=== PATIENT | male | born 1985 | race Caucasian/White ===

== ENCOUNTER 2020-04-17 21:06 | Inpatient (IN) | payer OTHER ==
[~2020-04-17] VITALS: Ht 177.8 cm; Wt 143.8 kg
[2020-04-17] MEDS ORDERED: ALBUTEROL (0.083%) 2.5MG/3ML NEB HHN STA (21:29)
[2020-04-17] MEDS ORDERED: IPRATROPIUM BROMIDE (0.02%) 0.5MG/2.5ML NEB HHN STA (21:29)
[2020-04-17] MEDS ORDERED: ACETAMINOPHEN 325MG TABLET PO STA (21:29)
[2020-04-17] MEDS: PIPERACILLIN/TAZ 3.375G PREMIX 50 ML IV ONE ×2 (21:55→22:15)
[2020-04-17 23:05] LABS: BASOPHILS % 0.2 % (0.0-2.0); HEMATOCRIT. 43.5 % (42.0-52.0); HEMOGLOBIN. 15.1 g/dL (14.0-18.0); LYMPHOCYTES % 11.9 % (20.0-50.0); MEAN CORPUSCULAR HEMOGLOBIN 30.3 pg (28.0-32.0); MEAN CORPUSCULAR VOLUME 87.7 fL (80.0-94.0); MONOCYTES % 4.6 % (2.0-8.0); NEUTROPHILS % 83.3 % (40.0-76.0); PLATELET 169 x1000/uL (130-400); RED BLOOD CELL COUNT 4.96 mill/uL (4.7-6.1); RED CELL DISTRIBUTION WIDTH 13.4 % (11.6-14.6)
[2020-04-17 23:16] LABS: CHLORIDE 104 mEq/L (98-107)
[2020-04-17 23:19] LABS: D-DIMER 0.62 mg/L FEU (<0.50); INR 1.1; PROTHROMBIN TIME 11.3 sec (9.6-11.0)
[2020-04-17 23:32] LABS: CLARITY URINE CLEAR (CLEAR); COLOR URINE YELLOW (YELLOW); KETONES URINE NEGATIVE (NEGATIVE); LEUKOCYTE ESTERASE URINE NEGATIVE (NEGATIVE); NITRITE URINE NEGATIVE (NEGATIVE); OCCULT BLOOD URINE NEGATIVE (NEGATIVE); PROTEIN URINE 1+ (NEGATIVE); SPECIFIC GRAVITY URINE 1.021 (1.005-1.030); UROBILINOGEN URINE 0.2 E.U./dL (0.2-1.0)
[2020-04-18] MEDS ORDERED: ONDANSETRON HCL 4MG/2ML INJ IV PRN (03:15)
[2020-04-18] MEDS ORDERED: ACETAMINOPHEN 325MG TABLET PO PRN (03:15)
[2020-04-18] MEDS ORDERED: DEXT 5%/0.45% NACL 1000ML 1,000 ML IV SCH (04:00)
[2020-04-18] MEDS ORDERED: AZITHROMYCIN 500 MG in DEXT 5% WATER 250 ML IV SCH (04:00)
[2020-04-18] MEDS: PIPERACILLIN/TAZ 3.375G PREMIX 50 ML IV SCH ×2 (08:08→15:36)
[2020-04-18] MEDS ORDERED: ENOXAPARIN 30MG/0.3ML SYR SUBCUT SCH (09:00)
[2020-04-18 09:25] LABS: BG CARBOXYHEMOGLOBIN 0.3 % (0.5-1.5); BG DEOXYHEMOGLOBIN 0.9 % (0.0-5.0); BG FRACTION INSPIRED OXYGEN 100; BG HCO3 ACT 22.5 mmol/L (22.0-26.0); BG METHEMOGLOBIN 0.3 % (0.0-1.5); BG OXYGEN SATURATION 99.1 % (92.0-98.5); BG OXYHEMOGLOBIN 98.5 % (94.0-97.0); BG PCO2 30.9 mmHg (35.0-45.0); BG PO2 208.4 mmHg (75.0-100.0); BG SAMPLE SITE RIGHT RADIAL; BG TOTAL HEMOGLOBIN 14.9 g/dL (12.0-18.0); BG VENT MODE MASK - NRB
[2020-04-18 15:58] VITALS: BP_SYST 118; BP_SYST 121; BP_DIAS 73
[2020-04-18] MEDS ORDERED: CEFTRIAXONE 1 G PREMIX 50 ML IV SCH (16:00)
[2020-04-18] MEDS: DEXAMETHASONE 4MG TABLET PO SCH (16:59)
[2020-04-18] MEDS: CEFTRIAXONE 1,000 MG in DEXTROSE 5% WATER 50 ML IV SCH (17:00)
[2020-04-18] MEDS: ALBUTEROL 6.7GM HFA INHALER ORI SCH (18:00)
[2020-04-18 20:31] VITALS: BP 119/83
[2020-04-18] MEDS: ENOXAPARIN 120MG/0.8ML SYR SUBCUT SCH (22:55)
[2020-04-18 23:23] VITALS: BP 123/91
[2020-04-19] MEDS: ALBUTEROL 6.7GM HFA INHALER ORI SCH ×5 (06:36→23:03)
[2020-04-19 06:56] LABS: BASOPHILS % 0.1 % (0.0-2.0); HEMATOCRIT. 42.4 % (42.0-52.0); HEMOGLOBIN. 14.6 g/dL (14.0-18.0); LYMPHOCYTES % 10.2 % (20.0-50.0); MEAN CORPUSCULAR HEMOGLOBIN 30.4 pg (28.0-32.0); MEAN CORPUSCULAR VOLUME 88.5 fL (80.0-94.0); MEAN PLATELET VOLUME 9.4 fl (7.4-10.4); MONOCYTES % 6.6 % (2.0-8.0); NEUTROPHILS % 83.1 % (40.0-76.0); PLATELET 192 x1000/uL (130-400); RED BLOOD CELL COUNT 4.79 mill/uL (4.7-6.1); RED CELL DISTRIBUTION WIDTH 13.5 % (11.6-14.6)
[2020-04-19 07:06] LABS: CHLORIDE 108 mEq/L (98-107)
[2020-04-19 08:00] VITALS: BP 108/62
[2020-04-19] MEDS: AZITHROMYCIN 500 MG in DEXT 5% WATER 250 ML IV SCH (08:24)
[2020-04-19] MEDS: ENOXAPARIN 120MG/0.8ML SYR SUBCUT SCH (08:25)
[2020-04-19] MEDS: DEXAMETHASONE 4MG TABLET PO SCH (08:25)
[2020-04-19 09:40] LABS: BG BASE EXCESS -1.3 mmol/L (-2.0-2.0); BG CARBOXYHEMOGLOBIN 0.3 % (0.5-1.5); BG DEOXYHEMOGLOBIN 5.6 % (0.0-5.0); BG FRACTION INSPIRED OXYGEN 44; BG HCO3 ACT 22.2 mmol/L (22.0-26.0); BG METHEMOGLOBIN 0.3 % (0.0-1.5); BG OXYGEN SATURATION 94.4 % (92.0-98.5); BG OXYHEMOGLOBIN 93.8 % (94.0-97.0); BG PCO2 34.1 mmHg (35.0-45.0); BG PH 7.431 (7.350-7.450); BG SAMPLE SITE RIGHT RADIAL; BG TOTAL HEMOGLOBIN 15.4 g/dL (12.0-18.0); BG VENT MODE NASAL CANNULA
[2020-04-19 12:00] VITALS: BP 105/69
[2020-04-19 16:00] VITALS: BP 120/67
[2020-04-19] MEDS: CEFTRIAXONE 1,000 MG in DEXTROSE 5% WATER 50 ML IV SCH (16:34)
[2020-04-19 20:00] VITALS: BP 122/81
[2020-04-19] MEDS: ENOXAPARIN 150MG/ML SYR SUBCUT SCH (23:03)
[2020-04-20] VITALS: BP_SYST 118; BP_SYST 122; BP_DIAS 77; BP_DIAS 81
[2020-04-20 04:00] VITALS: BP 115/76
[2020-04-20] MEDS: ALBUTEROL 6.7GM HFA INHALER ORI SCH ×3 (06:13→17:40)
[2020-04-20 08:00] VITALS: BP 115/73
[2020-04-20] MEDS: DEXAMETHASONE 4MG TABLET PO SCH (08:28)
[2020-04-20] MEDS: ENOXAPARIN 150MG/ML SYR SUBCUT SCH ×2 (08:28→21:56)
[2020-04-20] MEDS: AZITHROMYCIN 500 MG in DEXT 5% WATER 250 ML IV SCH (08:28)
[2020-04-20 12:00] VITALS: BP 110/71
[2020-04-20 16:00] VITALS: BP 117/71
[2020-04-20] MEDS: CEFTRIAXONE 1,000 MG in DEXTROSE 5% WATER 50 ML IV SCH (16:16)
[2020-04-20 20:00] VITALS: BP 122/72
[2020-04-21] VITALS (7 sets, daily range): BP systolic 106–124; BP diastolic 60–79
[2020-04-21] MEDS: ALBUTEROL 6.7GM HFA INHALER ORI SCH ×5 (01:22→23:13)
[2020-04-21] MEDS: DEXAMETHASONE 4MG TABLET PO SCH (08:11)
[2020-04-21] MEDS: ENOXAPARIN 150MG/ML SYR SUBCUT SCH ×2 (08:11→21:36)
[2020-04-21] MEDS ORDERED: DIPHENHYDRAMINE 50MG/ML VIAL IV PRN (12:30)
[2020-04-21] MEDS: CEFTRIAXONE 1,000 MG in DEXTROSE 5% WATER 50 ML IV SCH (16:14)
[2020-04-22 04:00] VITALS: BP 108/71
[2020-04-22 08:00] VITALS: BP 115/67
[2020-04-22] MEDS: DEXAMETHASONE 4MG TABLET PO SCH (08:12)
[2020-04-22] MEDS: ENOXAPARIN 150MG/ML SYR SUBCUT SCH (08:12)
[2020-04-22 09:27] LABS: BG BASE EXCESS -1.7 mmol/L (-2.0-2.0); BG CARBOXYHEMOGLOBIN 0.7 % (0.5-1.5); BG DEOXYHEMOGLOBIN 7.3 % (0.0-5.0); BG FRACTION INSPIRED OXYGEN 21; BG METHEMOGLOBIN 0.4 % (0.0-1.5); BG OXYGEN SATURATION 92.6 % (92.0-98.5); BG OXYHEMOGLOBIN 91.6 % (94.0-97.0); BG PH 7.449 (7.350-7.450); BG PO2 63.7 mmHg (75.0-100.0); BG SAMPLE SITE RIGHT RADIAL; BG TOTAL HEMOGLOBIN 16.3 g/dL (12.0-18.0); BG VENT MODE ROOM AIR
[2020-04-22] MEDS ORDERED: DEXA4TAB PO (11:37)
[2020-04-22] MEDS ORDERED: DEXA6TAB PO (11:37)
[2020-04-22 12:00] VITALS: BP 105/64
[2020-04-22 12:18] VITALS: BP 105/64
[2020-04-22] MEDS: ALBUTEROL 6.7GM HFA INHALER ORI SCH (12:40)
[2020-04-22 16:00] VITALS: BP 108/68
== END 2020-04-22 16:35 | disposition home or self-care (01) | DRG 871 ==
LOC: ER 21:06 → 7WST 04-18 00:42 → EDBEDREQ 04-18 00:52 → EDBEDREQDT 04-18 00:52 → EDBEDREQTM 04-18 00:52 → EDBEDREQSVC 04-18 09:58 → ENRESERV 04-18 15:00
PROVIDERS: ADMIT Hospitalist; ATTEND Hospitalist
DX: A41.89 Other specified sepsis (principal); U07.1 COVID-19; J96.01 Acute respiratory failure with hypoxia; J12.89 Other viral pneumonia; D68.69 Other thrombophilia; I10 Essential (primary) hypertension; B97.89 Other viral agents as the cause of diseases classified elsewhere; R74.0 Nonspecific elevation of levels of transaminase and lactic acid dehydrogenase [LDH]; R21 Rash and other nonspecific skin eruption
CPT/HCPCS: 36415; 36600; 71045; 80053; 81003; 82375; 82728; 82805; 83605; 83880; 84145; 84484; 85025; 85379; 85384; 86140; 87635; 93005; 94640; 96365; 99291; J0456; J0696; J1200; J1650; J2543; J7060; J8540; U0003-CS